=== PATIENT | female | born 1930 | race Caucasian/White ===

== ENCOUNTER 2018-08-26 11:46 | Emergency (ER) | payer OTHER ==
[~2018-08-26] VITALS: Ht 160 cm; Wt 81.6 kg
[2018-08-26] MEDS ORDERED: TROMBONEX CAPS1 EACH (12:18)
[2018-08-26] MEDS ORDERED: GLUMETZA500 MG (12:18)
[2018-08-26] MEDS ORDERED: MONTELUKAST SOD10 MG (12:19)
[2018-08-26] MEDS ORDERED: TOPROL XL100 MG (12:19)
[2018-08-26] MEDS ORDERED: COZAAR100 MG (12:19)
[2018-08-26] MEDS ORDERED: PEPCID20 MG PO (16:15)
[2018-08-26] MEDS ORDERED: INTESTINEX680 M1 PO (16:15)
[2018-08-26] MEDS ORDERED: CIPRO500 MG PO (16:24)
== END 2018-08-26 16:05 | disposition home or self-care (01) ==
LOC: ER 11:46
DX: R10.13 Epigastric pain (principal); N39.0 Urinary tract infection, site not specified; B96.29 Other Escherichia coli [E. coli] as the cause of diseases classified elsewhere